=== PATIENT | female | born 1955 | race Caucasian/White ===

== ENCOUNTER → 2017-04-04 | Outpatient (CLI) | payer OTHER ==
--- NOTE | 2017-04-04 14:42 | REPMRS ---
Patient History The patient states she had a clinical breast exam in 03/27 Patient is postmenopausal, has history of other cancer at age 49, had previous chemotherapy at age 49, and has history of cancer in the left breast at age 42. No known family history of cancer. Malignant mastectomy of the left breast, 1997. Took hormonal contraceptives for 8 years. Digital Woman Screen Mammo: April 04, 2017 - Exam #: [id number] Bilateral CC and MLO view(s) were taken. Technologist: Valeri Goodwin, Technologist Prior study comparison: April 03, 2016, digital woman screen mammo performed at [facility]. March 31, 2015, digital woman screen mammo performed at [facility] to [facility]. March 30, 2014, right breast bilat screen digital mammo, performed at [facility] ([facility]). FINDINGS: There are scattered fibroglandular densities. There has been no change in the appearance of the right breast parenchyma in the interval since the prior examination. No mass, architectural distortion, or microcalcific cluster has developed. No suspicious finding. ASSESSMENT: BI-RADS/ACR category 2 mammogram. Benign finding(s). Recommendation Routine screening mammogram in 1 year. This mammogram was interpreted with the aid of an FDA-approved computer-aided dectection system. Electronically Signed By: Johnathan Varela MD 04/04/17 2943
== END ==
LOC: M WHC 13:22
PROVIDERS: ATTEND Nurse Practitioner Women's Health
DX: Z12.31 Encounter for screening mammogram for malignant neoplasm of breast (principal); Z85.3 Personal history of malignant neoplasm of breast

== ENCOUNTER → 2017-04-04 | Outpatient (REF) | payer OTHER | LOC: M SFHCWAGY 14:14 | PROVIDERS: ATTEND Nurse Practitioner Women's Health | DX: Z12.4 Encounter for screening for malignant neoplasm of cervix (principal) ==

== ENCOUNTER → 2017-05-06 | Outpatient (CLI) | payer OTHER ==
--- NOTE | 2017-05-08 09:50 | DEXA ---
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 10 year probability of fracture Major osteoporotic fracture 13.7 % Hip fracture 1.9 % COMMENTS: There is low bone density of the spine and hips. The density of the spine has decreased 6.3% since the initial exam on 2001. The spine density has decreased 4.8% since the most recent exam on 05/11/2015. The density of the left hip has decreased 2.5% since the initial exam on 2001. The density of the left hip has decreased 1.1% since the most recent exam on 11/2014. The density of the right hip has increased 0.2% since the initial exam on 2001. The density of the right hip has decreased 1.8% since the most recent exam on . FOLLOW-UP: Recommendation for the next bone density exam: 2 years. JACQUE
== END ==
LOC: M WHC 13:28
PROVIDERS: ATTEND Nurse Practitioner Women's Health
DX: E78.00 Pure hypercholesterolemia, unspecified (principal); M85.00 Fibrous dysplasia (monostotic), unspecified site

== ENCOUNTER → 2018-06-19 | Outpatient (CLI) | payer OTHER | LOC: M WHC 15:03 | DX: Z12.31 Encounter for screening mammogram for malignant neoplasm of breast (principal); Z85.3 Personal history of malignant neoplasm of breast; Z90.12 Acquired absence of left breast and nipple | CPT/HCPCS: 77067 ==

== ENCOUNTER → 2018-06-19 | Outpatient (REF) | payer OTHER | LOC: M SFHCWAGY 16:18 | DX: Z12.4 Encounter for screening for malignant neoplasm of cervix (principal); N95.2 Postmenopausal atrophic vaginitis | CPT/HCPCS: G0123 ==

== ENCOUNTER → 2019-06-22 | Outpatient (CLI) | payer OTHER ==
--- NOTE | 2019-06-22 12:21 | REPMRS ---
Patient History The patient states she had a clinical breast exam in 06/2019. Patient is postmenopausal, has history of other cancer at age 49, has history of cancer in the left breast at age 42, and had previous chemotherapy at age 42. No known family history of cancer. Malignant mastectomy of the left breast, 1997. Took hormonal contraceptives for 8 years. Digital Woman Screen Mammo: June 22, 2019 - Exam #: [id number] Bilateral CC and MLO view(s) were taken. Technologist: Dominique Petersen, Technologist Prior study comparison: June 19, 2018, bilateral digital woman screen mammo performed at [facility]. April 04, 2017, digital woman screen mammo performed at [facility]. April 03, 2016, digital woman screen mammo performed at [facility]. FINDINGS: The breast tissue is heterogeneously dense. This may lower the sensitivity of mammography. The left breast is surgically absent. There has been no change in the appearance of the right breast parenchyma in the interval since the prior examination. No mass, architectural distortion, or microcalcific grouping has developed. No suspicious finding. 3-D tomosynthesis shows no additional findings. Assessment: BI-RADS/ACR category 2 mammogram. Benign Findings. Recommendation Routine screening mammogram of the right breast in 1 year. This mammogram was interpreted with the aid of an FDA-approved computer-aided dectection system. Electronically Signed By: Johnathan Varela MD 06/22/19 3019
== END ==
LOC: M WHC 09:07
PROVIDERS: ATTEND Nurse Practitioner Women's Health
DX: Z12.31 Encounter for screening mammogram for malignant neoplasm of breast (principal); Z85.3 Personal history of malignant neoplasm of breast; Z90.12 Acquired absence of left breast and nipple; Z78.0 Asymptomatic menopausal state; Z92.21 Personal history of antineoplastic chemotherapy; Z92.0 Personal history of contraception

== ENCOUNTER → 2019-06-22 | Outpatient (REF) | payer OTHER ==
[2019-06-24 14:12] LABS: HPV HYBRID CAPTURE II Positive (Negative)
== END ==
LOC: M SFHCWAGY 09:36
PROVIDERS: ATTEND Nurse Practitioner Women's Health
DX: Z12.4 Encounter for screening for malignant neoplasm of cervix (principal); N95.2 Postmenopausal atrophic vaginitis
CPT/HCPCS: 87624; G0123

== ENCOUNTER → 2019-07-30 | Outpatient (CLI) | payer OTHER ==
--- NOTE | 2019-08-03 10:38 | DEXA ---
AP SPINE L1 - L4 0.950 -2.0 -0.5 LT FEMUR TOTAL 0.764 -1.9 -0.8 LT NECK 0.736 -2.2 -0.8 RT FEMUR TOTAL 0.798 -1.7 -0.6 RT NECK 0.779 -1.9 -0.5 TOTAL BODY TOTAL OTHER COMMENTS: There is low bone density of the spine and hips. The increased density of the spine does not represent a significant change. The decreased density of the left hip does represent a significant change. The decreased density of the right hip does represent a significant change. The density of the spine has decreased 6.1% since the initial exam on 02/05/2002. The spine density has increased 0.2% since the most recent exam on 05/06/2017. The density of the left hip has decreased 5.4% since the initial exam on 02/05/2002. The density of the left hip has decreased 3.0% since the most recent exam on 05/06/2017. The density of the right hip has decreased 3.3% since the initial exam on 02/05/2002. The density of the right hip has decreased 3.5% since the most recent exam on 05/06/2017. FOLLOW-UP: Recommendation for the next bone density exam: 2 years. JACQUE
== END ==
LOC: M WHC 14:06
PROVIDERS: ATTEND Nurse Practitioner Women's Health
DX: M81.0 Age-related osteoporosis without current pathological fracture (principal); Z78.0 Asymptomatic menopausal state

== ENCOUNTER → 2020-06-23 | Outpatient (REF) | payer OTHER | LOC: M SFHCWAGY 12:00 | PROVIDERS: ATTEND Nurse Practitioner Women's Health | DX: Z12.4 Encounter for screening for malignant neoplasm of cervix (principal) ==

== ENCOUNTER → 2020-06-23 | Outpatient (CLI) | payer OTHER ==
--- NOTE | 2020-07-11 16:36 | REPMRS ---
Patient History The patient states she had a clinical breast exam in 06/2020. Patient is postmenopausal, has history of other cancer at age 49, has history of cancer in the left breast at age 42, and had previous chemotherapy at age 42. No known family history of cancer. Malignant mastectomy of the left breast, 1997. Took hormonal contraceptives for 8 years. Digital Woman Screen Mammo: June 23, 2020 - Exam #: [id number] CC and MLO view(s) were taken of the right breast. Technologist: Dominique Petersen, Technologist Prior study comparison: June 22, 2019, bilateral digital woman screen mammo performed at [facility]. June 19, 2018, bilateral digital woman screen mammo performed at [facility]. FINDINGS: The breast tissue is heterogeneously dense. This may lower the sensitivity of mammography. There has been no change in the appearance of the right breast parenchyma in the interval since the prior examination. No mass, architectural distortion, or microcalcific grouping has developed. No suspicious finding. 3-D tomosynthesis shows no additional findings. Assessment: BI-RADS/ACR category 2 mammogram. Benign Findings. Recommendation Routine screening mammogram of the right breast in 1 year. This mammogram was interpreted with the aid of an FDA-approved computer-aided dectection system. Electronically Signed By: Johnathan Varela MD 07/11/20 3190
== END ==
LOC: M WHC 14:13
PROVIDERS: ATTEND Nurse Practitioner Women's Health
DX: Z12.31 Encounter for screening mammogram for malignant neoplasm of breast (principal); Z85.3 Personal history of malignant neoplasm of breast; Z92.21 Personal history of antineoplastic chemotherapy

== ENCOUNTER → 2021-06-27 | Outpatient (CLI) | payer MEDICARE, OTHER ==
--- NOTE | 2021-06-27 13:05 | REP ---
INDICATION: ANITA SCR MAMMO. COMPARISON: Multiple TECHNIQUE: Digital screening mammography was carried out on the right breast in the CC and MLO projections using 2D and 3D modalities and compared to the prior exams. By history, the patient has no complaints of a palpable breast abnormality or other significant breast complaints. The patient is status post left mastectomy. FINDINGS: The right breast is unchanged in size and shape. In the retroareolar region upper slightly outer aspect there is a potential bertha density. No other suspicious features are seen. Once again, dense heterogenous somewhat nodular fibroglandular elements are seen throughout the right breast to such a degree that the sensitivity of the mammogram in detecting cancer is decreased. The Volpara volumetric breast density pattern is C. IMPRESSION: BIRADS/ACR category 0 mammogram. Potential bertha density in the right breast as described above for which diagnostic DBT spot compression views are recommended in the CC and MLO projections. Ultrasonography may also be indicated. This mammogram was interpreted with the aid of an FDA-approved computer-aided detection system. The patient states she had a clinical breast exam in June 2021. The patient letter being requested is M0. RECOMMENDATION: As above <Electronically signed by Alvin Brand > 06/27/21 1745
== END ==
LOC: M WHC 10:37
PROVIDERS: ATTEND Nurse Practitioner Women's Health
DX: R92.2 Inconclusive mammogram (principal); N63.11 Unspecified lump in the right breast, upper outer quadrant
CPT/HCPCS: 77063; 77067; G0101

== ENCOUNTER → 2021-06-27 | Outpatient (REF) | payer MEDICARE, OTHER | LOC: M SFHCWAGY 12:45 | PROVIDERS: ATTEND Nurse Practitioner Women's Health | DX: Z12.4 Encounter for screening for malignant neoplasm of cervix (principal); N88.8 Other specified noninflammatory disorders of cervix uteri ==

== ENCOUNTER → 2021-07-12 | Outpatient (CLI) | payer MEDICARE, OTHER ==
--- NOTE | 2021-07-12 16:25 | REP ---
INDICATION: ADDL VIEWS/RIGHT BREAST-JANICE DENSITY; RIGHT BREAST - JANICE DENSITY. COMPARISON: Comparison right breast mammography June 27, 2021 as well as June 23, 2020 and June 22, 2019. TECHNIQUE: Magnified focal spot-compression CC, MLO, and mL views are obtained. 3D tomographic spot views are included. Targeted right breast upper outer quadrant sonography is performed. This mammogram was interpreted with the aid of an FDA-approved computer-aided detection system. FINDINGS: Diagnostic images of the right breast fail to confirm the presence of a janice density. Heterogeneously dense stromal elements compress away to and appearance unchanged from prior mammography 2018. No dominant density is observed. No spiculation or microcalcification is observed. The Volpara volumetric breast density pattern is C. Targeted ultrasound: Upper-outer quadrant right breast sonography demonstrates heterogeneous fibroglandular background echotexture. No cyst or mass is seen. IMPRESSION: BIRADS/ACR category 1 negative right breast mammographic and sonographic findings. RECOMMENDATION: Repeat screening mammography recommended 1 year (for women over 40). The patient letter being requested is M1. <Electronically signed by Johnathan Varela > 07/12/21 2427
== END ==
LOC: M WHC 14:42
PROVIDERS: ATTEND Nurse Practitioner Women's Health
DX: R92.8 Other abnormal and inconclusive findings on diagnostic imaging of breast (principal); Z85.3 Personal history of malignant neoplasm of breast
CPT/HCPCS: 76642; 77065; G0279

== ENCOUNTER → 2022-08-15 | Outpatient (CLI) | payer MEDICARE, OTHER | LOC: M WHC 09:33 | PROVIDERS: ATTEND Nurse Practitioner Family | DX: Z12.31 Encounter for screening mammogram for malignant neoplasm of breast (principal); Z85.3 Personal history of malignant neoplasm of breast; Z90.12 Acquired absence of left breast and nipple ==

== ENCOUNTER → 2022-08-15 | Outpatient (REF) | payer MEDICARE, OTHER | LOC: M PLALAB 13:22 | PROVIDERS: ATTEND Nurse Practitioner Family | DX: Z12.4 Encounter for screening for malignant neoplasm of cervix (principal); N95.2 Postmenopausal atrophic vaginitis ==

== ENCOUNTER → 2023-10-09 | Outpatient (REF) | payer MEDICARE, OTHER | LOC: M SFHCWAGY 15:40 | PROVIDERS: ATTEND Nurse Practitioner Family | DX: Z12.4 Encounter for screening for malignant neoplasm of cervix (principal); N95.2 Postmenopausal atrophic vaginitis | CPT/HCPCS: 87624; G0123 ==

== ENCOUNTER → 2023-10-09 | Outpatient (CLI) | payer MEDICARE, OTHER | LOC: M WHC 09:58 | PROVIDERS: ATTEND Nurse Practitioner Family | DX: Z12.31 Encounter for screening mammogram for malignant neoplasm of breast (principal); Z85.3 Personal history of malignant neoplasm of breast; Z90.12 Acquired absence of left breast and nipple ==

== ENCOUNTER → 2024-12-03 | Outpatient (REF) | payer MEDICARE, OTHER ==
[2024-12-05 19:51] LABS: HPV APTIMA Not Detected (Not Detected)
== END ==
LOC: M SFHCWAGY 13:56
PROVIDERS: ATTEND Nurse Practitioner Family
DX: Z12.4 Encounter for screening for malignant neoplasm of cervix (principal)
CPT/HCPCS: 87624; G0123

== ENCOUNTER → 2024-12-03 | Outpatient (CLI) | payer MEDICARE, OTHER | LOC: M WHC 09:55 | PROVIDERS: ATTEND Nurse Practitioner Family | DX: Z12.31 Encounter for screening mammogram for malignant neoplasm of breast (principal); Z85.3 Personal history of malignant neoplasm of breast; Z90.12 Acquired absence of left breast and nipple ==